=== PATIENT | female | born 1960 | race Caucasian/White ===

== ENCOUNTER 2016-11-12 11:07 | Emergency (ER) | payer SELFPAY ==
[~2016-11-12] VITALS: Ht 154.9 cm; Wt 61.2 kg
--- NOTE | 2016-11-12 11:10 | NUR ---
PAIN AND NUMBNESS TO R HAND/WRIST X 2 WEEKS. NAD NOTED. PT AAO X4, AMB WITH STEADY GAIT. RR EVEN AND UNLABORED. RIGHT LOWER ARM NOTED COOL TO TOUCH, CAP REFILL NOTED DELAYED AT 7SECONDS. DR CADET AT BEDSIDE.
[2016-11-12 12:18] LABS: BASOPHILS % (AUTO) 0.8 % (0.0-2.0); EOSINOPHILS # (AUTO) 0.1 /CMM (0.0-0.7); EOSINOPHILS % (AUTO) 1.1 % (0.0-6.0); HEMATOCRIT 39 % (33-45); HEMOGLOBIN 13.2 g/dL (11.5-14.8); LYMPHOCYTES # (AUTO) 2.3 /CMM (0.8-4.8); LYMPHOCYTES % (AUTO) 38.7 % (20.0-44.0); MEAN CORPUSCULAR HEMOGLOBIN 31 PG (26.0-33.0); MEAN CORPUSCULAR HGB CONC 34 g/dl (31.0-36.0); MEAN CORPUSCULAR VOLUME 92 fL (82-100); MONOCYTES # (AUTO) 0.5 /CMM (0.1-1.30); MONOCYTES % (AUTO) 7.5 % (2.0-12.0); NEUTROPHILS # (AUTO) 3.1 /CMM (1.8-8.9); NEUTROPHILS % (AUTO) 51.9 % (43.0-81.0); PLATELET COUNT (AUTO) 243 /CMM (150-450); RDW COEFFICIENT OF VARIATION 11.5 (11.5-15.0); RED BLOOD CELL COUNT(AUTO) 4.22 MIL/uL (4.0-5.2)
[2016-11-12 12:26] LABS: CALCIUM, SERUM 9.1 mg/dL (8.5-10.1); CREATININE 0.7 mg/dL (0.6-1.3); POTASSIUM 4.2 mmol/L (3.5-5.1)
[2016-11-12 12:27] VITALS: BP 161/69
--- NOTE | 2016-11-12 12:28 | NUR ---
CALLED NURSING SUP. FOR TELE BED
[2016-11-12] MEDS ORDERED: IV NS 0.9% 1,000 ML BAG IV ONE (12:30)
--- NOTE | 2016-11-12 12:37 | NUR ---
CALLED , TRANSFERRED CALL TO
--- NOTE | 2016-11-12 12:49 | NUR ---
CALLED [facility] AND SPOKE TO ERASTO TO PRESENT CASE FOR HIGHER LEVEL OF CARE TRANSFER. STATES THAT WE NEED TO CALL ADMITTING FOR NORMAL TRANSFER
[2016-11-12] MEDS ORDERED: IOHEXOL-350 100 ML VIAL IV ONE (12:51)
[2016-11-12] MEDS ORDERED: CT SWABBABLE VALVE TRANS SET 1 EA INFUS.SET MC ONE (12:51)
[2016-11-12] MEDS ORDERED: IV NS 0.9% 250 ML IV ONE (12:51)
--- NOTE | 2016-11-12 12:53 | NUR ---
CALLED [facility], SPOKE WITH TAMARA, PRESENTED PT, SAID HE WILL CALL BACK BUT TO PRESENT TO MORE HOSPITALS IN THE MEAN TIME
[2016-11-12 13:04] LABS: PROTHROMBIN TIME 10.4 SECS (9.5-12.7)
--- NOTE | 2016-11-12 13:04 | NUR ---
PRESENTED CASE TO IVELISSE CHARGE NURSE AT [facility] ER, FOR HIGHER LEVEL OF CARE TRANSFER. 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
--- NOTE | 2016-11-12 13:05 | NUR ---
CALLED [facility], SPOKE WITH MARIA A, PRESENTED PT, WILL FAX FACESHEET TO [phone]
--- NOTE | 2016-11-12 13:07 | NUR ---
PRESENTED HLOC TRANSFER TO [facility] [phone], SPOKE WITH MARIA GUADALUPE BLOUNT.
--- NOTE | 2016-11-12 13:19 | NUR ---
CALLED [facility], SPOKE WITH ABHIJEET, SHE SAID THEY ARE CLOSED FOR SATURATION AND THEY HAVE NO BEDS.
--- NOTE | 2016-11-12 13:19 | NUR ---
PAGED VASCULAR SURGERY AT [facility]
--- NOTE | 2016-11-12 13:27 | NUR ---
CALLED [facility], SPOKE WITH KATIANA, WILL FAX FACESHEET AND PT RESULTS TO [phone]
--- NOTE | 2016-11-12 13:45 | NUR ---
CALLED [facility], WAS TRANSFERRED TO [facility] [phone], SPOKE WITH BATSHEVA, PRESENTED PT, AWAITING CALLBACK
--- NOTE | 2016-11-12 14:13 | NUR ---
CALLED [facility] TRANSFER LINE, SPOKE WITH FAYE, PRESENTED PT, WILL FAX FACESHEET TO HIM AT [phone]
--- NOTE | 2016-11-12 14:21 | NUR ---
PRESENTED CASE TO [facility] FOR HIGHER LEVEL OF CARE TRANSFER. WILL HAVE VASCULAR SURGERY CALL US BACK
--- NOTE | 2016-11-12 14:24 | NUR ---
PAGED AT [phone]
--- NOTE | 2016-11-12 14:29 | NUR ---
FAXED FACESHEET AND PT RESULTS TO [facility] AT [phone]
[2016-11-12] MEDS ORDERED: HEPARIN INFUSION/D5W 500 ML IV ONE ×2 (14:30→14:31)
[2016-11-12] MEDS ORDERED: HEPARIN SODIUM, PORCINE 5000 UNITS/1 ML VIAL IV ONE (14:30)
[2016-11-12] MEDS ORDERED: HEPARIN SODIUM, PORCINE 5000 UNITS/1 ML VIAL ONE (14:32)
--- NOTE | 2016-11-12 15:00 | NUR ---
HEPARIN INFUSION STARTED, WITNESSED WITH KAYLA BLOUNT Addendum: 11/12/16 at 1552 by TOYA HEPARIN DOSING FOR BOLUS AND INFUSION ADDITIONALLY WITNESSED BY NADINE
--- NOTE | 2016-11-12 15:37 | NUR ---
CALLED [facility] FOR TRANSPORT TO [facility] ROOM 5S10, ETA 40 MIN
--- NOTE | 2016-11-12 16:01 | NUR ---
REPORT GIVEN TO DESIRAE BLOUNT FROM [facility] FOR CONTINUITY OF CARE
--- NOTE | 2016-11-12 16:46 | NUR ---
PT LEFT VIA AMBULANCE TO [facility] IN STABLE CONDITION. NO FURTHER COMPLAINTS.
== END 2016-11-12 16:45 | disposition short-term general hospital (02) ==
LOC: ER 11:09
DX: I74.8 Embolism and thrombosis of other arteries (principal); Z90.49 Acquired absence of other specified parts of digestive tract
CPT/HCPCS: 36415; 71010; 71275; 73206; 80048; 85025; 85730; 93005; 93930; 96361; 96372; 96374; 99285; A4606; J1644 ×2; J7030 ×2; J7050; Q9967; Z7610